=== PATIENT | male | born 1950 | race Caucasian/White ===

== ENCOUNTER → 2018-01-22 | Outpatient (CLI) | payer OTHER ==
--- NOTE | 2018-01-22 17:52 | Diagnostic Imaging Report ---
EXAMINATION: CHEST 2 VIEWS INDICATION: \[id number] \S\[id number] \S\COUGH COMPARISON: None FINDINGS: PA and lateral views TUBES and LINES: None. LUNGS: Lungs are well inflated. Lungs are clear. There is no evidence of pneumonia or pulmonary edema. PLEURA: No pleural effusion or pneumothorax. HEART AND MEDIASTINUM: The cardiomediastinal silhouette is unremarkable. BONES AND SOFT TISSUES: No acute osseous lesion. Soft tissues are unremarkable. UPPER ABDOMEN: No free air under the diaphragm. IMPRESSION: No acute thoracic abnormality. Signed by: DR. See Elias MD on 01/22/2018 5:48 PM
== END ==
LOC: RAD 16:39
PROVIDERS: ATTEND Family Medicine
DX: R05 Cough (principal)
CPT/HCPCS: 71046

== ENCOUNTER 2024-10-12 20:46 | Observation (INO) | payer MEDICARE ==
[~2024-10-12] VITALS: Ht 177.8 cm; Wt 86.2 kg
[~2024-10-12 20:46] MED LIST: CLONIDINE HCL0.1 MG PO; CRESTOR10 MG PO; LOSARTAN POTAS100 MG PO; METFORMIN HCL500 MG PO; METHOCARBAMOL500 MG PO; METOPROLOL SUCC50 MG PO; PREDNISONE20 MG PO
[2024-10-12 21:37] VITALS: PULSE 74; RESP 18; TEMP 98
[2024-10-12] MEDS ORDERED: SODIUM CHLORIDE FLUSH 10 ML SYR IV PRN (22:00)
[2024-10-12 22:06] LABS: BASOPHILS % 0.7 % (0.0-1.0); EOSINOPHILS % 2.2 % (0.0-6.0); LYMPHOCYTES % 29.1 % (18.0-39.1); MONOCYTES % 10.0 % (4.4-11.3); NEUTROPHILS % 57.8 % (38.7-80.0); RED CELL DISTRIBUTION WIDTH 13.1 % (11.7-14.4)
[2024-10-12] MEDS: ASPIRIN 81 MG CHEW TAB PO ONE (22:11)
[2024-10-12 22:22] LABS: EST GLOMERULAR FILTRATION RATE 47 ML/MIN (>=60)
[2024-10-12] MEDS ORDERED: ONDANSETRON HCL INJ 2MG/ML 2ML 2 MG/ML VIAL IV PRN (22:45)
[2024-10-12] MEDS ORDERED: SODIUM CHLORIDE FLUSH 10 ML SYR INJ PRN (22:45)
[2024-10-12 23:25] VITALS: BP 122/75; PULSE 72; RESP 21; TEMP 97.7; O2SAT 100
[2024-10-12 23:45] VITALS: BP 117/74; PULSE 72; RESP 21; TEMP 97.7; O2SAT 98
[2024-10-13] VITALS (7 sets, daily range): BP systolic 121–163; BP diastolic 70–85; PULSE 62–99; RESP 16–18; TEMP 97.3–98.4; O2SAT 96–100
[2024-10-13] MEDS ORDERED: DONEPEZIL HCL10 MG PO (04:23)
[2024-10-13] MEDS ORDERED: ATORVASTATIN CA80 MG PO (04:23)
[2024-10-13] MEDS ORDERED: ALPRAZOLAM0.5 MG PO (04:23)
[2024-10-13] MEDS ORDERED: OZEMPIC2 MG/0.75 SC (04:23)
[2024-10-13] MEDS ORDERED: DULOXETINE HCL60 MG PO (04:23)
[2024-10-13] MEDS ORDERED: DULOXETINE HCL30 MG PO (04:23)
[2024-10-13] MEDS ORDERED: MELOXICAM15 MG PO (04:23)
[2024-10-13] MEDS ORDERED: EZETIMIBE10 MG PO (04:23)
[2024-10-13] MEDS ORDERED: GABAPENTIN400 MG PO (04:23)
[2024-10-13] MEDS ORDERED: AMBIEN10 MG PO (04:23)
[2024-10-13] MEDS ORDERED: MONTELUKAST SOD10 MG PO (04:25)
[2024-10-13 07:38] LABS: BASOPHILS % 0.6 % (0.0-1.0); EOSINOPHILS % 3.9 % (0.0-6.0); LYMPHOCYTES % 42.0 % (18.0-39.1); MONOCYTES % 13.4 % (4.4-11.3); NEUTROPHILS % 39.8 % (38.7-80.0); RED CELL DISTRIBUTION WIDTH 13.2 % (11.7-14.4)
[2024-10-13 08:31] LABS: EST GLOMERULAR FILTRATION RATE 69.0 ML/MIN (>=60)
[2024-10-13] MEDS: ASPIRIN 325 MG TAB EC PO SCH (09:03)
[2024-10-13] MEDS: METFORMIN HCL 500 MG TAB PO SCH (17:17)
[2024-10-13] MEDS: METHOCARBAMOL 500 MG TAB PO PRN (20:04)
[2024-10-13] MEDS: ZOLPIDEM TARTRATE 10 MG TAB PO PRN (20:04)
[2024-10-13] MEDS: DULOXETINE HCL 30 MG DELAYED RELEASE PO SCH (20:05)
[2024-10-13] MEDS: DONEPEZIL HCL 5 MG TAB PO SCH (20:05)
[2024-10-13] MEDS ORDERED: SIMVASTATIN 40 MG TAB PO SCH (21:00)
[2024-10-14] VITALS (7 sets, daily range): BP systolic 110–148; BP diastolic 69–91; PULSE 64–86; RESP 18; TEMP 97.4–97.9; O2SAT 98–100
[2024-10-14] MEDS: DULOXETINE HCL 30 MG DELAYED RELEASE PO SCH (09:00)
[2024-10-14] MEDS: ATORVASTATIN 40 MG TAB PO SCH (09:01)
[2024-10-14] MEDS: METOPROLOL SUCCINATE 50 MG TAB XL PO SCH (09:01)
[2024-10-14] MEDS: EZETIMIBE 10 MG TAB PO SCH (09:01)
[2024-10-15 04:36] VITALS: BP 120/82; PULSE 84; RESP 18; TEMP 98.3; O2SAT 98
[2024-10-15 08:11] VITALS: BP 135/83; PULSE 71; RESP 20; TEMP 97.9; O2SAT 100
[2024-10-15 08:13] VITALS: BP 135/83; PULSE 71; RESP 20; TEMP 97.9; O2SAT 100
[2024-10-15 09:26] VITALS: BP 135/83; PULSE 71
== END 2024-10-15 09:40 | disposition home or self-care (01) ==
LOC: ER 21:34 → ERHOLD 22:39 → MED/SURG2 23:46
PROVIDERS: ADMIT Family Medicine; ATTEND Family Medicine
DX: R06.00 Dyspnea, unspecified (principal); I25.10 Atherosclerotic heart disease of native coronary artery without angina pectoris; N17.9 Acute kidney failure, unspecified; I10 Essential (primary) hypertension; E78.5 Hyperlipidemia, unspecified; E11.40 Type 2 diabetes mellitus with diabetic neuropathy, unspecified; Z79.84 Long term (current) use of oral hypoglycemic drugs; Z95.5 Presence of coronary angioplasty implant and graft; F41.8 Other specified anxiety disorders; Z96.643 Presence of artificial hip joint, bilateral; G89.29 Other chronic pain; M54.50 Low back pain, unspecified; R41.81 Age-related cognitive decline
CPT/HCPCS: 36415; 71045; 80053; 82550; 82948; 83880; 84484; 85025; 93005; 93306; 94760; 99284; G0378